=== PATIENT | female | born 1970 | race African-American/Black ===

== ENCOUNTER 2019-10-24 10:06 | Emergency (ER) | payer OTHER, SELFPAY ==
[2019-10-24 10:18] VITALS: BP 133/63; PULSE 84; RESP 16; TEMP 37.1; O2SAT 100
--- NOTE | 2019-10-24 10:18 | ED.URI ---
HPI - URI/Sore Throat General Chief Complaint: Upper Respiratory Infection Stated Complaint: Sinus Time Seen by Provider: 10/24/19 10:27 Source: patient and RN notes reviewed Mode of arrival: ambulatory Limitations: no limitations History of Present Illness HPI Narrative: 49-year-old female presents with concern for nasal drainage, sneezing, occasional coughing, sinus pressure, sinus congestion that started on Thursday. She denies taking any nygn-guz-efunslo medications. MD elicited complaint: nasal congestion Related Data Home Medications Medication Instructions Recorded Confirmed lisinopril-hydrochlorothiazide 1 tablet DAILY 08/19/19 08/19/19 Allergies Allergy/AdvReac Type Severity Reaction Status Date / Time Penicillins Allergy Unknown RASH Verified 08/19/19 16:12 CITRATE Allergy Mild Swelling Uncoded 08/19/19 16:13 Review of Systems Review of Systems: Narrative: CONSTITUTIONAL: Denies malaise, chills, sweats, or fever. EYES: Denies visual changes, redness, or discharge. ENT: Reports rhinorrhea, congestion, scratchy throat. Denies sinus pain, otalgia and sore throat. CARDIOVASCULAR: Denies chest pain, palpitations, or edema. RESPIRATORY: Reports occasional cough. Denies dyspnea. GASTROINTESTINAL: Denies abdominal pain, nausea, vomiting, diarrhea SKIN: Denies rash or itching. MUSCULOSKELETAL: Denies myalgia. NEUROLOGIC: Denies headache. All systems reviewed & are unremarkable except as noted in HPI and below PMFSH Social History Social History Gender identity (if verbalized by the patient): Female Comments At time of signature, agree with nursing past medical, surgical, social and family history. There is no relevant family history pertinent to the presenting complaint Exam Narrative: Exam Narrative: GENERAL: Well-appearing, well-nourished, and in no acute distress. HEAD: Normocephalic EYES: PERRLA, conjunctivae clear ENT: Nares clear, turbinates erythematous, clear discharge. Mucous membranes moist. TM pearly strange with dull light reflex bilaterally; no tragal tenderness. Oropharynx not erythematous without lesions. Tonsils not enlarged and without exudate, no drooling, no hoarseness, no trismus. NECK: Supple. No lymphadenopathy CHEST: Clear to auscultation, breath sounds equal. No wheezing, rhonchi, rales, or stridor. No respiratory distress, speaks in full sentences. HEART: Regular rate and rhythm. No murmur heard. Normal peripheral pulses. SKIN: Warm, dry, no rash. NEURO: Alert and oriented x3. PSYCH: Normal mood and affect Course Course Emergency Course: Patient is aware of diagnosis, understands and agrees to treatment plan. Anticipatory guidance given. Patient agrees to follow-up as directed and is aware of reasons to seek care at the emergency department. Portions of this record may have been created with voice recognition software Vital Signs Vital signs: Vital Signs Temperature 98.8 F 10/24/19 10:18 Pulse Rate 84 10/24/19 10:18 Respiratory Rate 16 10/24/19 10:18 Blood Pressure 133/63 10/24/19 10:18 Pulse Oximetry 100 10/24/19 10:18 Temperature 98.8 F 10/24/19 10:18 Pulse Rate 84 10/24/19 10:18 Respiratory Rate 16 10/24/19 10:18 Blood Pressure 133/63 10/24/19 10:18 Pulse Oximetry 100 10/24/19 10:18 Reviewed. Patient has been instructed to follow up with her primary care provider within the next week regarding her elevated blood pressure today. MDM - URI/Sore Throat MDM Narrative Medical decision making narrative: Differential diagnosis considered: Strep pharyngitis, allergic rhinitis, upper respiratory tract infection, sinusitis, rhinosinusitis, nasopharyngitis. viral pharyngitis, otitis media, otitis externa, pneumonia, bronchitis, viral cough syndrome, viral syndrome, and influenza. Exam findings show no acute concerns or changes; patient is non-toxic appearing and is in no distress. Patient is appropriate for outpatient treatment and follow-up. Critical
== END 2019-10-24 10:39 | disposition home or self-care (01) ==
PROVIDERS: Emergency Provider Nurse Practitioner
DX: J06.9 Acute upper respiratory infection, unspecified (principal)
CPT/HCPCS: 99213; G0463

== ENCOUNTER 2019-11-01 16:23 | Emergency (ER) | payer OTHER, SELFPAY ==
[2019-11-01 16:35] VITALS: BP 125/65; PULSE 69; RESP 16; TEMP 36.9; O2SAT 98
--- NOTE | 2019-11-01 16:40 | ED.GENADULT ---
HPI - General Adult General Chief complaint: Upper Respiratory Infection Stated complaint: cough/sinus Time Seen by Provider: 11/01/19 16:40 Source: patient Mode of arrival: ambulatory Limitations: no limitations History of Present Illness HPI narrative: 41-year-old female patient with complaints of cold symptoms. Patient states she was here couple of weeks ago and was diagnosed with a virus and was discharged home with a daily antihistamine, nasal steroid, and Mucinex. Patient states she has taken all the medication. Patient states many of her symptoms have gotten better however she continues to have a cough and does have shortness of breath at times with the cough. Denies any chest pain. Denies any fevers. Patient states she does have a little bit of pain to the right ear at times. Patient is an active smoker. Patient denies getting a flu shot. Related Data Home Medications Medication Instructions Recorded Confirmed lisinopril-hydrochlorothiazide 1 tablet DAILY 08/19/19 11/01/19 Allergies Allergy/AdvReac Type Severity Reaction Status Date / Time Penicillins Allergy Unknown RASH Verified 11/01/19 16:44 CITRATE Allergy Mild Swelling Uncoded 11/01/19 16:44 Review of Systems Review of Systems: Narrative: CONSTITUTIONAL: Denies fever, chills, or sweats. EYES: Denies visual changes, redness, or discharge. ENT: Denies rhinorrhea, congestion, sore throat, positive right otalgia. CARDIOVASCULAR: Denies chest pain, palpitations, or edema. RESPIRATORY: Positive cough with dyspnea at times. GASTROINTESTINAL: Denies abdominal pain, nausea, vomiting, or diarrhea. GENITOURINARY: Denies dysuria or hematuria. SKIN: Denies rash or itching. MUSCULOSKELETAL: Denies back pain, joint pain, or myalgia. NEUROLOGIC: Denies headache, numbness, or weakness. PSYCHIATRIC: Denies anxiety or depression. [facility] Past Medical History Medical History (Updated 11/01/19 @ 16:52 by RODRIGUEZ Park) Hypertension Surgical History Surgical History (Updated 11/01/19 @ 16:42 by RODRIGUEZ Park) H/O: hysterectomy Social History Social History (Updated 11/01/19 @ 16:43 by RODRIGUEZ Park) Smoking packs per day: 0.5 Smoking cigarettes per day: 10.0 Gender identity (if verbalized by the patient): Female Comments At the time of my signature I agree with nursing past medical history, surgical, social, and family history. There is no relevant family history pertinent to the presenting complaint. Exam Narrative: Exam Narrative: GENERAL: Well-appearing, well-nourished, and in no acute distress. HEAD: Normocephalic, atraumatic. No tenderness noted to frontal and maxillary sinuses on palpation EYES: PERRLA and EOMI. ENT: Nares with erythema and edema noted bilaterally with the left nare swollen shut, no rhinorrhea or epistaxis. Mucous membranes moist. Posterior pharynx with no erythema, tonsil enlargement, exudates or lesions present. The right TM does have a little bit of fluid behind the ear but no erythema, no foreign bodies in the canal. NECK: Supple. No lymphadenopathy CHEST: Clear to auscultation. No respiratory distress. Patient is able to talk in clear complete sentences. No tripoding noted. HEART: Regular rate and rhythm. No murmur heard. Normal peripheral pulses. ABDOMEN: Soft, nontender, nondistended, normal active bowel sounds. EXTREMITIES: Normal range of motion. No edema. SKIN: Warm, dry, no rash. NEURO: No focal deficits. Alert and oriented x3. Course Vital Signs Vital signs: Vital Signs Temperature 36.9 C 11/01/19 16:35 Pulse Rate 69 11/01/19 16:35 Respiratory Rate 16 11/01/19 16:35 Blood Pressure 125/65 11/01/19 16:35 Pulse Oximetry 98 11/01/19 16:35 Temperature 36.9 C 11/01/19 16:35 Pulse Rate 69 11/01/19 16:35 Respiratory Rate 16 11/01/19 16:35 Blood Pressure 125/65 11/01/19 16:35 Pulse Oximetry 98 11/01/19 16:35 Vital signs reviewed. Medical Decision Making
[2019-11-01 16:52] VITALS: BP 135/77; PULSE 74; RESP 16; TEMP 37.1; O2SAT 100
== END 2019-11-01 16:55 | disposition home or self-care (01) ==
PROVIDERS: Emergency Provider Nurse Practitioner Family; PCP Internal Medicine
DX: J20.8 Acute bronchitis due to other specified organisms (principal); J00 Acute nasopharyngitis [common cold]; J01.90 Acute sinusitis, unspecified; I10 Essential (primary) hypertension; F17.210 Nicotine dependence, cigarettes, uncomplicated
CPT/HCPCS: 99213; G0463